=== PATIENT | male | born 1925 | race Caucasian/White ===

== ENCOUNTER 2017-01-25 16:20 | Inpatient (IN) | payer MEDICARE, OTHER ==
[~2017-01-25] VITALS: Ht 160 cm; Wt 64.0 kg
[~2017-01-25 16:20] MED LIST: CRAN400C PO; DOCU-170 PO; FERR325T28 PO; GEMF600T PO; INSU100C7 SQ; LISI10TA5 PO; METF10002 PO; METO5TAB2 PO; PIOG30TA2 PO; POLY17PO4 PO; TRAM50TA2 PO
--- NOTE | 2017-01-25 16:20 | NUR ---
BBRA FROM [employer] FOR MORE ALTERED THAN USUAL TODAY. PLACED ON MONITOR. RT AT BEDSIDE. GOWNED PT. AWAITING MD ORDER
[2017-01-25 16:50] LABS: BASOPHILS # (AUTO) 0.1 /CMM (0.0-0.2); BASOPHILS % (AUTO) 0.2 % (0.0-2.0); EOSINOPHILS # (AUTO) 0.1 /CMM (0.0-0.7); EOSINOPHILS % (AUTO) 0.2 % (0.0-6.0); HEMATOCRIT 28 % (39-51); HEMOGLOBIN 9.1 g/dL (13.5-17.5); LYMPHOCYTES # (AUTO) 0.4 /CMM (0.8-4.8); LYMPHOCYTES % (AUTO) 1.2 % (20.0-44.0); MEAN CORPUSCULAR HEMOGLOBIN 27 PG (26.0-33.0); MEAN CORPUSCULAR HGB CONC 32 g/dl (31.0-36.0); MEAN CORPUSCULAR VOLUME 83 fL (80-96); MONOCYTES # (AUTO) 0.2 /CMM (0.1-1.30); MONOCYTES % (AUTO) 0.5 % (2.0-12.0); NEUTROPHILS # (AUTO) 29.8 /CMM (1.8-8.9); NEUTROPHILS % (AUTO) 97.9 % (43.0-81.0); PLATELET COUNT (AUTO) 443 /CMM (150-450); RDW COEFFICIENT OF VARIATION 13.4 (11.5-15.0); RED BLOOD CELL COUNT(AUTO) 3.41 MIL/uL (4.5-6.0)
[2017-01-25 16:53] LABS: WHITE BLOOD COUNT (AUTO) 30.6 K/uL (4.3-11.0)
--- NOTE | 2017-01-25 16:54 | NUR ---
EKG IN PROGRESS
[2017-01-25 17:03] LABS: ABG BASE EXCESS -22.8 mmol/L; ABG OXYGEN SATURATION 97.9 % (92.0-98.5); ABG PCO2 16.6 mmHg (35.0-45.0); ABG PH 7.094 (7.350-7.450); ABG PO2 288.3 mmHg (75.0-100.0); AaDO2 264.7 mmHg; COHb 0.3 % (0.5-1.5); MetHb 0.6 % (0.0-1.5); SITE, ABG Right Radial; VENT MODE, BG 80% NRB MASK
[2017-01-25] MEDS ORDERED: ASCO500T9 PO (17:03)
[2017-01-25] MEDS ORDERED: FERR325T22 PO (17:03)
[2017-01-25] MEDS ORDERED: GLIP5TAB13 PO (17:03)
[2017-01-25] MEDS ORDERED: CLON0.1T PO (17:03)
[2017-01-25] MEDS ORDERED: MAGN400O6 PO (17:03)
[2017-01-25] MEDS ORDERED: ACET-868 PO (17:03)
[2017-01-25] MEDS ORDERED: DOCU-170 PO (17:03)
[2017-01-25] MEDS ORDERED: BISA10SU8 RC (17:03)
[2017-01-25] MEDS ORDERED: CALC500T3 PO (17:03)
[2017-01-25] MEDS ORDERED: GEMF600T3 PO (17:03)
[2017-01-25] MEDS ORDERED: CARV3.122 PO (17:03)
[2017-01-25] MEDS ORDERED: FOLI0.8T2 PO (17:03)
[2017-01-25] MEDS ORDERED: FERR-58 PO (17:03)
[2017-01-25] MEDS ORDERED: OMEP20TA68 PO (17:03)
[2017-01-25] MEDS ORDERED: BENEFIBER PO (17:03)
[2017-01-25] MEDS ORDERED: CALC-883 PO (17:03)
[2017-01-25] MEDS ORDERED: ASPI81TA2 PO (17:03)
[2017-01-25] MEDS ORDERED: NA P133E RC (17:03)
[2017-01-25] MEDS ORDERED: CRAN3875 PO (17:03)
[2017-01-25 17:04] LABS: INR 1.64 (0.87-1.13); PROTHROMBIN TIME 17.5 SECS (9.5-12.7)
[2017-01-25 17:08] LABS: TROPONIN I < 0.017 ng/mL (0.00-0.056)
[2017-01-25 17:13] LABS: ALANINE AMINOTRANSFERASE 13 U/L (12-78); ALBUMIN 2.6 g/dL (3.4-5.0); ALKALINE PHOSPHATASE 198 U/L (46-116); ASPARTATE AMINOTRANSFERASE 27 U/L (15-37); B-TYPE NATRIURETIC PEPTIDE 9553 PG/ML (0-125); BILIRUBIN,DIRECT 0.2 mg/dL (0.0-0.2); BILIRUBIN,TOTAL 0.6 mg/dL (0.2-1.0); CALCIUM, SERUM 6.1 mg/dL (8.5-10.1); CHLORIDE 103 mmol/L (98-107); GLUCOSE 136 mg/dL (74-106); SODIUM SERUM 137 mmol/L (136-145); TOTAL PROTEIN, SERUM 8.6 g/dL (6.4-8.2)
[2017-01-25 17:16] LABS: CARBON DIOXIDE 8 mmol/L (21-32); POTASSIUM 6.7 mmol/L (3.5-5.1)
[2017-01-25 17:17] LABS: CREATININE 10.1 mg/dL (0.6-1.3); UREA NITROGEN, BLOOD 213 mg/dL (7-18)
[2017-01-25] MEDS ORDERED: PIPERACILLIN /TAZOBACTAM 3.375 G in IV D5W 50 ML IV ONE (17:30)
[2017-01-25] MEDS ORDERED: VANCOMYCIN 1 GM in IV D5W 250 ML IV ONE (17:30)
--- NOTE | 2017-01-25 17:32 | NUR ---
CALLED PHARMACY FOR MEDS
--- NOTE | 2017-01-25 17:34 | NUR ---
PER DR HOOK PAGED DR SCHERER SOLE SCRAPER FOR [facility]
--- NOTE | 2017-01-25 17:37 | NUR ---
GAVE REPORT TO SOON RN STACY . DNR DNI . TRANSFER VIA ACLS PROTOCOL. DR MIRANDA ADMITTING DX RESP DISTRESS.
[2017-01-25 17:43] LABS: BAND % (MANUAL) 11 % (0.0-5.0); LYMPHOCYTES % (MANUAL) 2 % (16-48); MONOCYTES % (MANUAL) 2 % (0-11.0); NEUTROPHILS % (MANUAL) 85 (42-76)
[2017-01-25] MEDS ORDERED: SODIUM BICARBONATE SYR 50 MEQ/50 ML DISP.SYRIN ONE (17:57)
[2017-01-25] MEDS ORDERED: IV SET PRIMARY PUMP SET 1 EA INFUS.SET MC ONE (17:57)
[2017-01-25] MEDS ORDERED: INSULIN REGULAR, HUMAN 100 UNIT/ML 10 ML VIAL ONE (17:57)
[2017-01-25] MEDS ORDERED: DEXTROSE 50%-WATER 50 ML DISP.SYRIN ONE (17:57)
[2017-01-25] MEDS ORDERED: Z GUARD REMEDY 2 OZ OINT TP PRN (18:00)
[2017-01-25] MEDS ORDERED: DEXTROSE 50%-WATER 50 ML DISP.SYRIN IVP ONE (18:00)
[2017-01-25] MEDS ORDERED: INSULIN REGULAR, HUMAN 100 UNIT/ML 3 ML VIAL SQ PRN (18:00)
[2017-01-25] MEDS ORDERED: ALBUTEROL FS 2.5 MG/3 ML VIAL.NEB NEB ONE (18:00)
[2017-01-25] MEDS ORDERED: MORPHINE SULFATE INJ 2 MG/ML DISP.SYRIN IV PRN (18:00)
[2017-01-25] MEDS ORDERED: INSULIN REGULAR, HUMAN 100 UNIT/ML 10 ML VIAL IV ONE ×2 (18:00)
[2017-01-25] MEDS ORDERED: DEXTROSE 50%-WATER 50 ML DISP.SYRIN IV PRN (18:00)
[2017-01-25] MEDS ORDERED: BLOOD SUGAR DIAGNOSTIC 1 EACH STRIP IN SCH (18:00)
[2017-01-25] MEDS ORDERED: IPRATROPIUM NEB FS 0.5 MG/2.5 ML AMPUL.NEB NEB PRN (18:00)
[2017-01-25] MEDS ORDERED: SODIUM BICARBONATE SYR 50 MEQ/50 ML DISP.SYRIN IV ONE ×2 (18:00)
[2017-01-25] MEDS ORDERED: DEXTROSE 50%-WATER 50 ML DISP.SYRIN IV ONE (18:00)
[2017-01-25] MEDS ORDERED: ACETAMINOPHEN 650 MG/SUPP.RECT RC PRN (18:00)
[2017-01-25] MEDS ORDERED: ONDANSETRON HCL/PF 4 MG/2 ML VIAL IVP PRN (18:00)
[2017-01-25] MEDS ORDERED: ALBUTEROL FS 2.5 MG/3 ML VIAL.NEB ONE (18:09)
[2017-01-25] MEDS ORDERED: FEE PK DOSING 1 MIN EA MC ONE (18:09)
--- NOTE | 2017-01-25 18:16 | NUR ---
URINE SAMPLE COLLECTED SNE TTO LAB
[2017-01-25] MEDS ORDERED: VANCOMYCIN 500 MG in IV D5W 100 ML IV PRN (18:30)
--- NOTE | 2017-01-25 19:08 | NUR ---
GAVE REPORT TO LUPILLO FOR [facility]
[2017-01-25 19:25] LABS: APPEARANCE,URINE Turbid (CLEAR); BILIRUBIN,URINE SMALL (NEGATIVE); BLOOD, URINE Large Ery/uL (NEGATIVE); COLOR,URINE Amber (YELLOW); KETONES,URINE Negative (NEGATIVE); LEUKOCYTE ESTERASE ,URINE Large (NEGATIVE); NITRITE, URINE Negative (NEGATIVE); PH,URINE 5.5 (5.0-8.0); PROTEIN,URINE >=300 mg/dl (NEGATIVE); UGLUCOSE Negative (NEGATIVE); UROBILINOGEN,URINE 0.2 EU/dL (0.2)
[2017-01-25 19:30] VITALS: BP 103/59
[2017-01-25] MEDS ORDERED: ALBUTEROL FS 2.5 MG/3 ML VIAL.NEB NEB PRN (19:30)
[2017-01-25 19:37] LABS: BACTERIA,URINE Many /HPF (None Seen); RBC,URINE TOO NUMEROUS TO COUN /HPF (0-2); SQUAMOUS EPITHELIAL CELL,UR Few /HPF (None Seen); WBC,URINE TOO NUMEROUS TO COUN /HPF (0-3)
--- NOTE | 2017-01-25 19:39 | NUR ---
Transported to [facility] fl[facility] 117-2 via als protocol, no incident noted. Robi OH at bedside.
[2017-01-25] MEDS ORDERED: VANCOMYCIN HCL 125 MG/2.5 ML ORAL.SUSP PO SCH (20:00)
[2017-01-25] MEDS ORDERED: SODIUM POLYSTYRENE SULFONATE 15 G/60 ML BOTTLE PO ONE (20:00)
--- NOTE | 2017-01-25 20:00 | NUR ---
PT ADMITTED FROM ER VIA [facility] @ 1930 WITH THE DX OF SEVERE SEPSIS , ACUTE RESPIRATORY FAILURE , SEVERE METABOLIC ACIDOSIS . PT IS OBTUNDED , ON BIPAP ,SETTINGS - 15/5 , FIO2 60% , UNABLE TO PROVIDE HX FROM PT , PT IS DNR /DNI . PT IS GETTING EMERGENCY DIALYSIS AT THIS TIME , QUICK SKIN ASSESSMENT DONE . WILL CONTINUE TO MONITOR .
--- NOTE | 2017-01-25 20:25 | NUR ---
RN SPOKE TO MD AVILEZ REGARDING PT'S CURRENT STATUS, MD AVILEZ WITH ORDER ADMIT PT TO STACY STATUS, PT DNR/DNI.
--- NOTE | 2017-01-25 20:30 | NUR ---
PATIENT CONDITION DETORIATE DURING THE DIALYSIS. PT IS DNR/DNI . PT LOOKS PALE , NO PULSE NOTED. ICU CHARGE NURSE ED PRONOUNCED @ 2029. CALLED [facility] , CASE # [id number] . FAMILY NOTIFIED , (IMANI CASTELANUL , NEPHEW). NEPHEW WILL CALL BACK WITH THE INFORMATION OF ARRANGEMENT . TANKAGE GRINDER DR AVILEZ INFORMED . CONSTRUCTION RIGGER DR MIRANDA INFORMED BY DIALYSIS NURSE MAGO .UNABLE TO PERFORM COMPLETE ADMITTING ASSESSMENT DUE TO RAPID DETORIATION OF PT CONDITION .
--- NOTE | 2017-01-25 20:35 | NUR ---
PT @2029. PT TAKEN OFF BIPAP.
--- NOTE | 2017-01-25 20:56 | NUR ---
RN SPOKE TO MD RAGHAV MD AWARE PT AT 20:30, WILL NOTIFY MD ELHAM GARSIA.
--- NOTE | 2017-01-25 21:21 | NUR ---
RN SPOKE TO AUGUSTUS FROM HOME , [facility], , MACHINERY DISMANTLER TIME IN 90 MINUTES.
[2017-01-26] MEDS ORDERED: PIPERACILLIN /TAZOBACTAM 2.25 G in IV D5W 50 ML IV SCH (05:00)
[2017-01-26] MEDS ORDERED: ASPIRIN 81 MG TAB.CHEW PO SCH (09:00)
[2017-01-26] MEDS ORDERED: PANTOPRAZOLE 40 MG VIAL IV SCH (09:00)
== END 2017-01-25 20:30 | disposition expired | DRG 871 ==
LOC: ER 16:22 → TELE-TD 17:30
PROC: 5A09357 Assistance with Respiratory Ventilation, Less than 24 Consecutive Hours, Continuous Positive Airway Pressure (ICD-10-PCS; principal; 2017-01-25)
PROC: 5A1D00Z (ICD-10-PCS; 2017-01-25)
DX: A41.9 Sepsis, unspecified organism (principal); J96.01 Acute respiratory failure with hypoxia; N18.6 End stage renal disease; J69.0 Pneumonitis due to inhalation of food and vomit; I12.0 Hypertensive chronic kidney disease with stage 5 chronic kidney disease or end stage renal disease; E87.2 Acidosis; E11.22 Type 2 diabetes mellitus with diabetic chronic kidney disease; R13.10 Dysphagia, unspecified; Z66 Do not resuscitate; Z79.899 Other long term (current) drug therapy; D64.9 Anemia, unspecified; E87.5 Hyperkalemia; Z74.01 Bed confinement status; E78.5 Hyperlipidemia, unspecified; R65.20 Severe sepsis without septic shock
CPT/HCPCS: 36415; 36600; 71010-TC; 80048-TC; 80076-TC; 81000-TC; 83605-TC; 83880; 84484-TC; 85025-TC; 85730-TC; 87040-TC; 87086-TC; 87186-TC; 90935-TC; A4606; A6403; J1815; J2543; J3370; J3490; J7060; Z7610